=== PATIENT | male | born 1965 | race Caucasian/White ===

== ENCOUNTER → 2017-10-16 | Outpatient (CLI) | payer OTHER ==
[2017-10-16] VITALS (9 sets, daily range): BP systolic 91–112; BP diastolic 51–62
[~2017-10-16] MED LIST: CATAPRES0.2 M1 PO; COREG25 MG PO; FLECAINIDE ACET50 M1 PO; HYDRALAZINE 2525 MG PO; K-DUR 20 MEQ T20 MEQ PO; LASIX 40 MG TAB40 M2 PO; MICARDIS 80 MG80 MG PO; PROCARDIA XL60 MG PO; TRAZODONE HCL100 MG PO; VITAMIN D250000 UNIT; VITAMIN D5000 UNIT PO; XARELTO20 MG PO
[2017-10-16 13:37] LABS: HEMATOCRIT 41.8 % (42.0-52.0); HEMOGLOBIN 14.3 gm/dL (14.0-18.0); MCH 30.5 pg (26.0-34.0); MCHC 34.3 g/dL (28.0-37.0); MCV 88.9 fL (80.0-100.0); MPV 8.5 fl. (7.2-11.1); RBC 4.7 mil/uL (4.50-6.00); RDW-CV 13.4 % (10.5-14.5); WBC 7.5 thou/uL (4.0-11.0)
[2017-10-16 13:45] LABS: CALCIUM 8.9 mg/dL (8.5-10.1); CREATININE 0.9 mg/dL (0.6-1.3); POTASSIUM 3.5 mmol/L (3.5-5.1)
[2017-10-16 13:47] LABS: APTT 29.8 Seconds (25.0-31.3); INR 1.1; PROTIME 10.4 Seconds (9.20-11.50)
[2017-10-16 13:50] LABS: ALBUMIN 3.6 g/dL (3.4-5.0); TOTAL BILIRUBIN 0.5 mg/dL (<0.1-1.0); TOTAL PROTEIN 7.5 g/dL (6.4-8.2)
--- NOTE | 2017-10-25 09:11 | CARD ---
[address] [address] CARDIAC CATH REPORT Name: JANETTE JOINER Room: [facility] JEN GuajardoJamesManasaJames#: [id number] Admission: 10/16/17 Attend Phys: Kalyan Gonzalez MD Discharge: Date of : 69 Report #: [id number] THIS REPORT FOR: //name// CC: Shaina Marcelino PROCEDURE: DC cardioversion. INDICATION: Persistent atrial fibrillation. DESCRIPTION OF PROCEDURE: After informed consent was obtained, the patient was brought to the cardiac holding area. The patient was given intravenous Versed and fentanyl for adequate sedation. Once the patient was adequately sedated, he was cardioverted. It required two biphasic shocks of 360 joules. Ultimately, he did attain sinus rhythm. The patient tolerated the procedure well without complication and was discharged to home in stable condition. CONCLUSION: 1. Persistent atrial fibrillation. 2. Successful DC cardioversion to normal sinus rhythm. Follow up in two weeks. <ELECTRONICALLY SIGNED> By: Kalyan Gonzalez MD, FACC 10/25/17 0911 [id number] Janet Gonzalez MD, FACC /nt
== END | disposition home or self-care (01) ==
LOC: M.CL 10:30
PROVIDERS: Internal Medicine Cardiovascular Disease
DX: I48.1 Persistent atrial fibrillation (principal); Z79.899 Other long term (current) drug therapy

== ENCOUNTER → 2021-01-16 | Outpatient (CLI) | payer OTHER | LOC: M.ULTRA 15:29 | PROVIDERS: ATTEND Physician Assistant | DX: I82.622 Acute embolism and thrombosis of deep veins of left upper extremity (principal); M79.89 Other specified soft tissue disorders ==